=== PATIENT | male | born 1975 | race Hispanic/Latino ===

== ENCOUNTER 2024-05-13 18:11 | Emergency (ER) | payer OTHER | END 2024-05-13 20:26 | disposition home or self-care (01) | LOC: MADERS 18:11 | DX: S40.011A Contusion of right shoulder, initial encounter (principal); V49.9XXA Car occupant (driver) (passenger) injured in unspecified traffic accident, initial encounter; W22.12XA Striking against or struck by front passenger side automobile airbag, initial encounter; Z55.6 Problems related to health literacy | CPT/HCPCS: 99284 ==